=== PATIENT | female | born 1950 | race Caucasian/White ===

== ENCOUNTER 2018-07-12 07:12 | Emergency (ER) | payer SELFPAY, OTHER ==
[2018-07-12 09:19] LABS: ADD MAN DIFF? NO
[2018-07-12 09:26] LABS: WHITE BLOOD COUNT 6.1 10^3/ul (4.8-10.8)
[2018-07-12 09:26] LABS: BASOPHILS % 0.3 % (0.0-2.0); EOSINOPHILS # 0.1 10^3/ul (0.0-0.5); EOSINOPHILS % 0.8 % (0.0-7.0); HEMATOCRIT 42.6 % (37.0-47.0); HEMOGLOBIN 13.7 g/dl (12.0-16.0); LYMPHOCYTES # 1.4 10^3/ul (0.8-2.9); LYMPHOCYTES % 23.4 % (15.0-51.0); MEAN CORPUSCULAR HEMOGLOBIN 27.1 pg (29.0-33.0); MEAN CORPUSCULAR HGB CONC 32.2 g/dl (32.0-37.0); MEAN CORPUSCULAR VOLUME 84.2 fl (82.0-101.0); MEAN PLATELET VOLUME 10.3 fl (7.4-10.4); MONOCYTE # 0.5 10^3/ul (0.3-0.9); MONOCYTES % 8.7 % (0.0-11.0); NEUTROPHIL # 4.1 10^3/ul (1.6-7.5); NEUTROPHILS % 66.6 % (39.0-77.0); PLATELET COUNT 245 10^3/UL (140-415); RED BLOOD COUNT 5.06 10^6/ul (4.20-5.40); RED CELL DISTRIBUTION WIDTH 14.3 % (11.5-14.5)
[2018-07-12 09:44] LABS: ANION GAP 6 (5-13); BLOOD UREA NITROGEN 14 mg/dl (7-20); CALCIUM 9.9 mg/dl (8.4-10.2); CARBON DIOXIDE 30 mmol/L (21-31); CHLORIDE 108 mmol/L (97-110); CREATININE 0.52 mg/dl (0.44-1.00); Estimated GFR > 60 mL/min (>60); GLUCOSE 103 mg/dl (70-220); POTASSIUM 4.6 mmol/L (3.5-5.1); SODIUM 144 mmol/L (135-144)
[2018-07-12 09:56] LABS: TROPONIN-I < 0.012 ng/ml (0.000-0.120)
== END 2018-07-12 11:50 | disposition home or self-care (01) ==
LOC: E/R 07:12
DX: I10 Essential (primary) hypertension (principal); R00.2 Palpitations; R07.9 Chest pain, unspecified; Z79.82 Long term (current) use of aspirin
CPT/HCPCS: 36415; 71045; 80048; 84484; 85025; 93005; 99285-25